=== PATIENT | female | born 1990 | race Hispanic/Latino ===

== ENCOUNTER 2019-12-10 20:17 | Emergency (ER) | payer OTHER, SELFPAY ==
[2019-12-10] MEDS ORDERED: Dexamethasone 10 MG/ML VIAL ONE (21:41)
== END 2019-12-10 21:46 | disposition home or self-care (01) ==
LOC: ERS 20:17
DX: J02.9 Acute pharyngitis, unspecified (principal)
CPT/HCPCS: 99282; J1100

== ENCOUNTER 2020-01-11 12:20 | Emergency (ER) | payer OTHER, SELFPAY ==
[2020-01-11 14:42] LABS: MONO NEGATIVE CONTROL ZONE White (Negative) (White); MONO POSITIVE CONTROL Pink Line (Positive) (PINK/RED); Mononucleosis NEGATIVE (NEGATIVE)
== END 2020-01-11 17:06 | disposition home or self-care (01) ==
LOC: ERS 12:20
DX: J02.9 Acute pharyngitis, unspecified (principal); R59.1 Generalized enlarged lymph nodes
CPT/HCPCS: 36415; 86308; 87081; 87430; 99283

== ENCOUNTER 2020-07-06 19:52 | Emergency (ER) | payer OTHER, SELFPAY ==
--- NOTE | 2020-07-06 20:14 | RAD ---
EXAM: Chest PA and lateral: HISTORY: Chest pain. Back pain. COMPARISON: None. FINDINGS: Heart: Normal cardiac silhouette Aorta: Unremarkable Pulmonary vessels: Normal Costophrenic angles: Costophrenic angles are clear. Lungs: No consolidation or masses. Pneumothorax: No pneumothorax Osseous structures: No osseous abnormalities IMPRESSION: No acute cardiopulmonary process.
[2020-07-06 21:37] LABS: Pregnancy Test - Urine (BHCG) Negative (Negative); Pregu Control Background? CLEAR/WHITE (CLR/WHITE); Pregu Control Bar Appear? YES (CONTROL BAR); Specific Gravity 1.006 (1.002-1.036)
== END 2020-07-06 21:28 | disposition home or self-care (01) ==
LOC: ERS 19:52
DX: M94.0 Chondrocostal junction syndrome [Tietze] (principal)
CPT/HCPCS: 71046; 81025; 93005

== ENCOUNTER 2020-12-08 08:11 | Emergency (ER) | payer SELFPAY ==
[2020-12-08] MEDS ORDERED: Ketorolac Tromethamine 30 MG/ML VIAL ONE (08:50)
[2020-12-08 18:22] LABS: SARS-CoV-2 PCR by NAA Not Detected (NotDetected)
== END 2020-12-08 10:36 | disposition home or self-care (01) ==
LOC: ERS 08:11
DX: R09.81 Nasal congestion (principal); R05 Cough; Z20.822 Contact with and (suspected) exposure to COVID-19
CPT/HCPCS: 71045; 96372; J1885; U0003; U0005

== ENCOUNTER 2021-08-24 07:33 | Outpatient (CLI) | payer OTHER | END 2021-08-24 07:34 | disposition home or self-care (01) | LOC: BICULT 07:33 | PROVIDERS: ATTEND Family Medicine | DX: Z34.82 Encounter for supervision of other normal pregnancy, second trimester (principal); Z3A.19 19 weeks gestation of pregnancy | CPT/HCPCS: 76805 ==